=== PATIENT | female | born 1970 | race Caucasian/White ===

== ENCOUNTER 2018-04-23 18:05 | Emergency (ER) | payer OTHER ==
[~2018-04-23] VITALS: Ht 154.9 cm; Wt 74.8 kg
[~2018-04-23 18:05] MED LIST: AZITHROMYCIN 2250 MG PO; PREDNISONE 10 M10 MG PO; PROAIR HFA8.5 GM PO
[2018-04-23 18:31] VITALS: BP 125/72
[2018-04-23] MEDS ORDERED: NOHOMEMEDICATIONS (18:36)
[2018-04-23] MEDS ORDERED: CLEOCIN HCL150 MG PO (19:05)
[2018-04-23] MEDS ORDERED: ACETAMINOPHEN-1 EAC1 PO (19:05)
[2018-04-23] MEDS ORDERED: MEDROLDOSEPACK PO (19:05)
== END 2018-04-23 19:20 | disposition home or self-care (01) ==
LOC: M.ERS 18:05
DX: K04.7 Periapical abscess without sinus (principal); G43.909 Migraine, unspecified, not intractable, without status migrainosus; F17.210 Nicotine dependence, cigarettes, uncomplicated